=== PATIENT | male | born 1995 | race African-American/Black ===

== ENCOUNTER 2017-10-22 23:43 | Emergency (ER) | payer OTHER | END 2017-10-23 04:05 | disposition home or self-care (01) | LOC: FTE 23:43 | DX: S39.012A Strain of muscle, fascia and tendon of lower back, initial encounter (principal); S20.219A Contusion of unspecified front wall of thorax, initial encounter; V49.40XA Driver injured in collision with unspecified motor vehicles in traffic accident, initial encounter | CPT/HCPCS: 71045; 71110; 72100; 99284-25 ==